=== PATIENT | male | born 1980 | race Caucasian/White ===

== ENCOUNTER 2021-06-02 10:31 | Emergency (ER) | payer BC | END 2021-06-02 12:28 | disposition home or self-care (01) | LOC: MW.ED 10:31 | DX: L03.031 Cellulitis of right toe (principal); E66.9 Obesity, unspecified; Z87.891 Personal history of nicotine dependence; Z68.42 Body mass index [BMI] 45.0-49.9, adult | CPT/HCPCS: 73620-26-RT; 73620-RT; 99283-25 ==

== ENCOUNTER 2022-02-08 12:25 | Inpatient (IN) | payer BC ==
[2022-02-08] MEDS ORDERED: Enoxaparin 40 MG/0.4 ML Syringe SUBCUT ONE (14:30)
[2022-02-08] MEDS ORDERED: Pantoprazole 40 MG in Sodium Chloride 0.9% 10 ML IV ONE (14:30)
[2022-02-08] MEDS ORDERED: Piperacillin/Tazobactam 3.375 GM in Sodium Chloride 0.9% 100 ML IV ONE ×2 (14:30→20:30)
[2022-02-08] MEDS ORDERED: VANCOmycin 2 GM/400 ML 400 ML IV ONE (20:45)
[2022-02-08] MEDS ORDERED: Morphine 2 MG/ML SYRINGE IV ONE (20:50)
[2022-02-09] MEDS ORDERED: Piperacillin/Tazobactam 3.375 GM in Sodium Chloride 0.9% 50 ML IV ONE ×4 (01:55→21:00)
[2022-02-09] MEDS ORDERED: VANCOmycin 2 GM/400 ML 400 ML IV ONE ×3 (04:35→21:00)
[2022-02-09] MEDS ORDERED: Morphine 2 MG/ML SYRINGE IV ONE (08:50)
[2022-02-09] MEDS ORDERED: Enoxaparin 40 MG/0.4 ML Syringe SUBCUT ONE (09:00)
[2022-02-09] MEDS ORDERED: Pantoprazole 40 MG in Sodium Chloride 0.9% 10 ML IV ONE (09:00)
[2022-02-10] MEDS ORDERED: Morphine 2 MG/ML SYRINGE IV ONE ×3 (00:34→22:40)
[2022-02-10] MEDS ORDERED: Piperacillin/Tazobactam 3.375 GM in Sodium Chloride 0.9% 50 ML IV ONE ×4 (02:36→20:32)
[2022-02-10] MEDS ORDERED: VANCOmycin 2 GM/400 ML 400 ML IV ONE ×3 (04:12→21:10)
[2022-02-10] MEDS ORDERED: Pantoprazole 40 MG in Sodium Chloride 0.9% 10 ML IV ONE (08:50)
[2022-02-10] MEDS ORDERED: Enoxaparin 40 MG/0.4 ML Syringe SUBCUT ONE (09:00)
[2022-02-11] MEDS ORDERED: Piperacillin/Tazobactam 3.375 GM in Sodium Chloride 0.9% 50 ML IV ONE ×4 (02:30→21:35)
[2022-02-11] MEDS ORDERED: VANCOmycin 2 GM/400 ML 400 ML IV ONE ×3 (05:45→22:30)
[2022-02-11] MEDS ORDERED: Piperacillin/Tazobactam 3.375 GM AdvVial IV ONE (08:00)
[2022-02-11] MEDS ORDERED: fentaNYL 250 MCG/5 ML SDV IVPUSH ONE (08:00)
[2022-02-11] MEDS ORDERED: Ketorolac 30 MG/ML SDV IVPUSH ONE (08:00)
[2022-02-11] MEDS ORDERED: ePHEDrine 50 MG/ML SDV IVPUSH ONE (08:00)
[2022-02-11] MEDS ORDERED: Propofol 200 MG/20 ML SDV IVPUSH ONE (08:00)
[2022-02-11] MEDS ORDERED: Ondansetron 4 MG/2 ML SDV IVPUSH ONE (08:00)
[2022-02-11] MEDS ORDERED: SODIUM CHLORIDE 0.9% IV ONE (08:00)
[2022-02-11] MEDS ORDERED: Magnesium Sulfate (4.06 MEQ/ML) 5 GM/10 ML SDV IV ONE (08:00)
[2022-02-11] MEDS ORDERED: Ketamine 500 mg/10 ML MDV IV ONE (08:00)
[2022-02-11] MEDS ORDERED: Lactated Ringers 1,000 ML IV ONE (08:00)
[2022-02-11] MEDS ORDERED: fentaNYL 100 MCG/2 ML SDV IVPUSH ONE (08:00)
[2022-02-11] MEDS ORDERED: Succinylcholine/Sod PF 100 MG/5 ML SYRINGE IV ONE (08:00)
[2022-02-11] MEDS ORDERED: Water For Injection, Sterile 20 ML SDV INJECT ONE (08:00)
[2022-02-11] MEDS ORDERED: Dexmedetomidine 200 MCG/2 ML SDV IV ONE (08:00)
[2022-02-11] MEDS ORDERED: Bupivacaine 0.5% 30 ML SDV INFILT ONE (08:30)
[2022-02-11] MEDS ORDERED: Pantoprazole 40 MG in Sodium Chloride 0.9% 10 ML IV ONE (10:45)
[2022-02-12] MEDS ORDERED: Morphine 2 MG/ML SYRINGE IV ONE ×2 (00:44→10:04)
[2022-02-12] MEDS ORDERED: VANCOmycin 2 GM/400 ML 400 ML IV ONE ×3 (05:55→21:00)
[2022-02-12] MEDS ORDERED: Piperacillin/Tazobactam 3.375 GM in Sodium Chloride 0.9% 50 ML IV ONE ×3 (08:10→20:15)
[2022-02-12] MEDS ORDERED: Pantoprazole 40 MG in Sodium Chloride 0.9% 10 ML IV ONE (08:18)
[2022-02-12] MEDS ORDERED: Enoxaparin 40 MG/0.4 ML Syringe SUBCUT ONE ×2 (08:25→21:00)
[2022-02-13] MEDS ORDERED: Morphine 2 MG/ML SYRINGE IV ONE (00:02)
[2022-02-13] MEDS ORDERED: Piperacillin/Tazobactam 3.375 GM in Sodium Chloride 0.9% 50 ML IV ONE ×2 (02:00→08:00)
[2022-02-13] MEDS ORDERED: VANCOmycin 2 GM/400 ML 400 ML IV ONE (05:00)
[2022-02-13] MEDS ORDERED: Enoxaparin 40 MG/0.4 ML Syringe SUBCUT ONE (09:00)
== END 2022-02-13 13:00 | disposition home or self-care (01) | DRG 314 ==
LOC: MW.ED 12:25 → MW.ZCENSUS 13:30
PROVIDERS: ATTEND Student in an Organized Health Care Education/Training Program
PROC: 0Y6T0Z3 Detachment at Right 3rd Toe, Low, Open Approach (ICD-10-PCS; principal; 2022-02-11)
DX: M86.8X7 Other osteomyelitis, ankle and foot (principal); E66.9 Obesity, unspecified; I10 Essential (primary) hypertension; I96 Gangrene, not elsewhere classified; R73.03 Prediabetes; L97.519 Non-pressure chronic ulcer of other part of right foot with unspecified severity; G47.33 Obstructive sleep apnea (adult) (pediatric); L03.116 Cellulitis of left lower limb; Z79.899 Other long term (current) drug therapy; Z89.421 Acquired absence of other right toe(s)
CPT/HCPCS: 01480; 73630-26-RT; 73630-RT; 76000; 76000-26; 97161-GP; 97530-GP; 99284; C9113; J0330; J1650; J1885; J2270; J2405; J2543; J2704; J3010; J3370; J3475; J3490; J7120